=== PATIENT | female | born 1960 | race Native Hawaiian/Other Pacific Islander ===

== ENCOUNTER 2021-04-04 08:28 | Outpatient (CLI) | payer OTHER ==
[~2021-04-04] VITALS: Ht 142.2 cm; Wt 120.2 kg
== END 2021-04-04 20:31 | disposition home or self-care (01) ==
LOC: INF 08:28
PROVIDERS: ATTEND Internal Medicine
DX: Z23 Encounter for immunization (principal); U07.1 COVID-19
CPT/HCPCS: 96365; M0244